=== PATIENT | female | born 1955 | race Two or more races ===

== ENCOUNTER 2018-01-13 12:16 | Outpatient (CLI) | payer OTHER | END 2018-01-13 12:33 | disposition home or self-care (01) | LOC: SONOGRAMA 12:16 | DX: N75.0 Cyst of Bartholin's gland (principal); Z80.0 Family history of malignant neoplasm of digestive organs ==

== ENCOUNTER 2019-09-18 17:04 | Emergency (ER) | payer OTHER ==
[~2019-09-18] VITALS: Ht 160 cm; Wt 72.6 kg
[2019-09-18] MEDS ORDERED: SYNTHROID50 MCG PO (17:15)
[2019-09-18] MEDS ORDERED: TOPROL XL50 M1 PO (17:15)
[2019-09-18] MEDS ORDERED: AMBIEN10 MG PO (17:16)
== END 2019-09-18 19:31 | disposition home or self-care (01) ==
LOC: ER 17:04
DX: S01.82XA Laceration with foreign body of other part of head, initial encounter (principal); S80.02XA Contusion of left knee, initial encounter; S80.01XA Contusion of right knee, initial encounter; W01.198A Fall on same level from slipping, tripping and stumbling with subsequent striking against other object, initial encounter; Y93.01 Activity, walking, marching and hiking; Y92.488 Other paved roadways as the place of occurrence of the external cause; Y99.8 Other external cause status

== ENCOUNTER 2019-09-26 12:21 | Emergency (ER) | payer OTHER ==
[~2019-09-26] VITALS: Ht 160 cm; Wt 72.6 kg
[~2019-09-26 12:21] MED LIST: AMBIEN10 MG PO; SYNTHROID50 MCG PO; TOPROL XL50 M1 PO
== END 2019-09-26 13:11 | disposition home or self-care (01) ==
LOC: ER 12:21
DX: Z48.02 Encounter for removal of sutures (principal)

== ENCOUNTER 2020-06-06 09:46 | Day surgery (SDC) | payer OTHER | END 2020-06-06 19:45 | disposition home or self-care (01) | LOC: CIR.AMB 09:46 | PROVIDERS: ATTEND Obstetrics & Gynecology | DX: N84.0 Polyp of corpus uteri (principal); Z20.828 Contact with and (suspected) exposure to other viral communicable diseases ==

== ENCOUNTER 2022-01-21 11:26 | Outpatient (CLI) | payer OTHER | END 2022-01-21 11:34 | disposition home or self-care (01) | LOC: SONOGRAMA 11:26 | PROVIDERS: ATTEND Physical Medicine & Rehabilitation | DX: M25.512 Pain in left shoulder (principal) ==

== ENCOUNTER 2025-09-14 18:14 | Emergency (ER) | payer OTHER ==
[~2025-09-14] VITALS: Ht 160 cm; Wt 699.9 kg
[2025-09-14 21:51] LABS: BASO % 0.3 % (0.1-1.2); EOS # 0.28 (0.04-0.54); EOS % 2.9 % (0.7-7.0); LYMPH # 1.74 (1.18-3.74); LYMPH % 17.8 % (19.3-53.1); MEAN PLATELET VOLUME 11.00 fl (9.4-12.4); MONO # 0.67 (0.24-0.82); MONO % 6.9 % (4.7-12.5); NEUT # 7.01 (1.56-6.13); NEUT % 71.9 % (34.0-71.1); RED CELL DISTRIBUTION WIDTH 12.2 % (11.6-14.4)
[2025-09-14 22:23] LABS: ALT/SGPT 22.0 U/L (12-78); AST/SGOT 16.0 U/L (15-37); BILIRUBIN TOTAL 0.77 mg/dL (0.3-1.2); BUN CREA RATIO 22.0 (7.0-25.0); CREATININE SERUM 0.51 mg/dL (0.55-1.02); GFR 118.87; GLOBULINA 3.2 G/DL (2.4-3.5); GLUCOSE FASTING 97.0 mg/dL (65-100); OSMOLALITY SERUM 281.0 MOSM/KG (275-295)
[2025-09-15 00:35] LABS: URINE APPEARANCE Error; URINE BILIRRUBIN Negative (NEGATIVE); URINE BLOOD Moderate; URINE COLOR Yellow; URINE GLUCOSE Negative (NEGATIVE); URINE KETONE 15 (NEGATIVE); URINE LEUKOCYTE Negative; URINE NITRATE Negative; URINE PROTEIN Negative (NEGATIVE); URINE UROBILINOGEN 0.2 E.U./dl
[2025-09-15 00:39] LABS: URINE BACTERIA 5.7 uL (0.0-1933); URINE CAST 0.00 uL (0.0-1.40); URINE EPITHELIAL CELLS 1.2 uL (0.0-38.8); URINE RBC 55.8 uL (0.0-20.8); URINE WBC 4.5 uL (0.0-23.2)
[2025-09-15 00:54] LABS: COVID-19 AG NEGATIVE (NEGATIVE)
[2025-09-15] MEDS ORDERED: PEPCID AC20 MG PO (01:18)
[2025-09-15] MEDS ORDERED: ZOFRAN8 MG PO (01:18)
[2025-09-15] MEDS ORDERED: DICY20TA PO (01:18)
[2025-09-15] MEDS ORDERED: ACETAMINOPHEN500 M1 PO (01:18)
== END 2025-09-15 01:34 | disposition home or self-care (01) ==
LOC: ER 18:15
PROVIDERS: Preventive Medicine Public Health & General Preventive Medicine
DX: B34.9 Viral infection, unspecified (principal); R10.32 Left lower quadrant pain; I10 Essential (primary) hypertension; Z91.013 Allergy to seafood; Z20.822 Contact with and (suspected) exposure to COVID-19